=== PATIENT | female | born 1945 | race American Indian/Alaskan Native ===

== ENCOUNTER 2022-01-27 10:56 | Emergency (ER) | payer BC, MEDICARE ==
[2022-01-27 11:34] VITALS: BP 138/86
[2022-01-27] MEDS ORDERED: SODIUM CHLORIDE 0.9% 500 ML 500 ML IV ONE (11:43)
--- NOTE | 2022-01-27 12:40 | XRay Report ---
CHEST 1 VIEW 01/27/2022 11:31 AM INDICATION / CLINICAL INFORMATION: Medical Clearance Psych. COMPARISON: 10/15/2021 FINDINGS: SUPPORT DEVICES: None. HEART / MEDIASTINUM: No significant abnormality. LUNGS / PLEURA: Airspace opacities previously noted in the left lung base have improved in the interv al but are not entirely resolved.. There are low lung volumes bilaterally. No pneumothorax. There is a small calcified granuloma in the right midlung. The right lung is otherwise clear. ADDITIONAL FINDINGS: No significant additional findings. IMPRESSION: 1. There has been interval improvement in airspace opacity since the prior study from October. There is some mild persistent parenchymal opacity in the left lung base. The right lung appears clear. Signer Name: Peter Ramos MD Signed: 01/27/2022 12:36 PM Workstation Name: [id number]
[2022-01-27 12:50] LABS: Basophils # (Auto) 0.1 K/mm3 (0.0-0.1); Basophils % (Auto) 0.7 % (0.0-1.8); Eosinophils # (Auto) 0.2 K/mm3 (0.0-0.4); Eosinophils % (Auto) 2.2 % (0.0-4.3); Hematocrit 38.3 % (30.3-42.9); Hemoglobin 12.3 gm/dl (10.1-14.3); Lymphocytes # (Auto) 3.8 K/mm3 (1.2-5.4); Lymphocytes % (Auto) 40.5 % (13.4-35.0); Mean Corpuscular HGB Conc 32 % (30-34); Mean Corpuscular Volume 88 fl (79-97); Monocytes # (Auto) 0.9 K/mm3 (0.0-0.8); Monocytes % (Auto) 9.4 % (0.0-7.3); Platelet Count 354 K/mm3 (140-440); Red Blood Count 4.38 M/mm3 (3.65-5.03); Red Cell Distribution Width 16.1 % (13.2-15.2)
[2022-01-27 13:02] LABS: Alanine Aminotransferase 8 units/L (7-56); Albumin 3.2 g/dL (3.9-5); Blood Urea Nitrogen 6 mg/dL (7-17); Calcium 10.2 mg/dL (8.4-10.2); Hemolysis Index 33
[2022-01-27 13:03] LABS: BUN/Creatinine Ratio 15
[2022-01-27] MEDS ORDERED: POTASSIUM CHLORIDE ER 20 MEQ TAB PO ONE (13:08)
--- NOTE | 2022-01-27 13:32 | Emergency Department Report ---
ED Medical Clearance HPI - General Chief complaint: Medical Clearance Stated complaint: CHEST PAIN Time Seen by Provider: 01/27/22 11:40 Source: EMS Mode of arrival: Stretcher Limitations: No Limitations - History of Present Illness Initial comments: Pt brought in by EMS with c/o chest pain, pt states that she was seen and being abx for UTI, pt states that she has felt worse since treatment. Pt reports changes in taste and smell. -: Gradual, days(s) Reason for Medical Clearance: medical condition Place: home Alledged Intoxication: No Compliant with Home Medications: No Traumatic Symptoms: denies traumatic injury Associated Symptoms: chest pain, weakness. denies: shortness of breath, palpitations, diaphoresis, denies other symptoms, cough, fever/chills, headaches Treatments Prior to Arrival: none Home medications: Home Medications Medication Instructions Recorded Confirmed Last Taken Amlodipine Besylate [Norvasc] 10 mg PO DAILY 10/15/21 10/15/21 10/15/21 AtorvaSTATin [Lipitor] 20 mg PO QHS 10/15/21 10/15/21 10/15/21 Etanercept [Enbrel] 50 mg SQ QWEEK 10/15/21 10/16/21 10/11/21 Folic Acid 1 mg PO DAILY 10/15/21 10/15/21 10/15/21 Insulin Glargine [Lantus VIAL] 8 unit SUB-Q QHS 10/15/21 10/16/21 10/14/21 Levothyroxine [Synthroid] 75 mcg PO QAM 10/15/21 10/15/21 10/15/21 Lisinopril [Zestril] 20 mg PO DAILY 10/15/21 10/15/21 10/15/21 Metformin HCl [Metformin HCl ER] 500 mg PO DAILY 10/15/21 10/16/21 10/15/21 Metoprolol Xl [Metoprolol 100 mg PO QDAY 10/15/21 10/15/21 10/15/21 SUCCINATE ER TAB] metHOTREXate sodium [Methotrexate] 8 tab PO 1XW 10/15/21 10/16/21 10/14/21 Previous Rx's Medication Instructions Recorded Last Taken Type Apixaban [Eliquis] 5 mg PO Q12HR tablet 10/22/21 Unknown Rx Apixaban [Eliquis] 10 mg PO Q12HR tablet 10/22/21 Unknown Rx Insulin Regular, Human [HumuLIN R] 0 units SUB-Q AC units 10/22/21 Unknown Rx Allergies/Adverse reactions: Allergies Allergy/AdvReac Type Severity Reaction Status Date / Time No Known Allergies Allergy Verified 01/27/22 11:34 ED Review of Systems ROS: Stated complaint: CHEST PAIN Other details as noted in HPI Constitutional: denies: chills, fever Eyes: denies: eye pain, eye discharge, vision change ENT: denies: ear pain, throat pain Respiratory: denies: cough, shortness of breath, wheezing Cardiovascular: denies: chest pain, palpitations Endocrine: no symptoms reported Gastrointestinal: denies: abdominal pain, nausea, diarrhea Genitourinary: denies: urgency, dysuria, discharge Musculoskeletal: denies: back pain, joint swelling, arthralgia Skin: denies: rash, lesions Neurological: denies: headache, weakness, paresthesias Psychiatric: denies: anxiety, depression Hematological/Lymphatic: denies: easy bleeding, easy bruising ED Past Medical Hx - Past Medical History Hx Hypertension: Yes Hx Diabetes: Yes - Social History Smoking Status: Never Smoker Substance Use Type: None - Medications Home Medications: Home Medications Medication Instructions Recorded Confirmed Last Taken Type Amlodipine Besylate [Norvasc] 10 mg PO DAILY 10/15/21 10/15/21 10/15/21 History AtorvaSTATin [Lipitor] 20 mg PO QHS 10/15/21 10/15/21 10/15/21 History Etanercept [Enbrel] 50 mg SQ QWEEK 10/15/21 10/16/21 10/11/21 History Folic Acid 1 mg PO DAILY 10/15/21 10/15/21 10/15/21 History Insulin Glargine [Lantus VIAL] 8 unit SUB-Q QHS 10/15/21 10/16/21 10/14/21 History Levothyroxine [Synthroid] 75 mcg PO QAM 10/15/21 10/15/21 10/15/21 History Lisinopril [Zestril] 20 mg PO DAILY 10/15/21 10/15/21 10/15/21 History Metformin HCl [Metformin HCl ER] 500 mg PO DAILY 10/15/21 10/16/21 10/15/21 History Metoprolol Xl [Metoprolol 100 mg PO QDAY 10/15/21 10/15/21 10/15/21 History SUCCINATE ER TAB] metHOTREXate sodium [Methotrexate] 8 tab PO 1XW 10/15/21 10/16/21 10/14/21 History Apixaban [Eliquis] 5 mg PO Q12HR tablet 10/22/21 Unknown Rx Apixaban [Eliquis] 10 mg PO Q12HR tablet 10/22/21 Unknown Rx Insulin Regular, Human [HumuLIN R] 0 units SUB-Q AC units 10/22/21 Unknown Rx ED Physical Exam - General Limitations: No Limitations General appearance: alert, in no apparent distress - Head Head exam: Present: atraumatic, normocephalic - Eye Eye exam: Present: normal appearance - ENT ENT exam: Present: mucous membranes moist - Neck Neck exam: Present: normal inspection - Respiratory Respiratory exam: Present: normal lung sounds bilaterally. Absent: respiratory distress - Cardiovascular Cardiovascular Exam: Present: regular rate, normal rhythm. Absent: systolic murmur, diastolic murmur, rubs, gallop - GI/Abdominal GI/Abdominal exam: Present: soft, normal bowel sounds - Extremities Exam Extremities exam: Present: normal inspection - Back Exam Back exam: Present: normal inspection - Neurological Exam Neurological exam: Present: alert, oriented X3 - Psychiatric Psychiatric exam: Present: normal affect, normal mood - Skin Skin exam: Present: warm, dry, intact, normal color. Absent: rash ED Course Vital Signs 01/27/22 01/27/22 11:33 11:45 Temperature 96.1 F L Pulse Rate 84 Respiratory 16 Rate Blood Pressure 138/86 [Right] O2 Sat by Pulse 100 100 Oximetry ED Medical Decision Making - Lab Data Result diagrams: 01/27/22 12:20 01/27/22 12:20 - EKG Data -: EKG Interpreted by Pr EKG shows normal: sinus rhythm - EKG Data Interpretation: nonspecific ST-T wave grant, LVH - Radiology Data Radiology results: report reviewed, image reviewed - Medical Decision Making work up showed hypokalemia, corrcted , x ray shwoed imrpoved pneumonia , vss no distress feels better ED Disposition Clinical Impression: Weakness, Pneumonia, Hypokalemia Disposition: 01 HOME / SELF CARE / HOMELESS Is pt being admited?: No Does the pt Need Aspirin: No Condition: Stable Instructions: Bacterial Pneumonia (ED), Hypokalemia, Weakness
--- NOTE | 2022-01-29 14:16 | Electrocardiograph Report ---
[facility] Test Date: 2022-01-27 Test Time: 11:29:27 Pat Name: MOMO BENAVIDEZ Department: Room: Gender: F Stull Hewer: YESSY : 1945 Requested By: ANT ROMERO Order Number: [id number] Reading MD: Emily Yepez Measurements Intervals [place] Rate: 76 P: 10 [place]: 175 QRS: -32 QRSD: 107 T: -11 QT: 436 QTc: 490 Interpretive Statements Sinus rhythm Left ventricular hypertrophy Left axis deviation Compared to ECG 10/15/2021 10:56:10 No significant change Electronically Signed On 01-29-2022 14:15:40 EDT by Emily Yepez
== END 2022-01-27 15:11 | disposition home or self-care (01) ==
LOC: ED 10:56
DX: J18.9 Pneumonia, unspecified organism (principal); R53.1 Weakness; E87.6 Hypokalemia; I10 Essential (primary) hypertension; E11.8 Type 2 diabetes mellitus with unspecified complications
CPT/HCPCS: 36415; 71045; 80053; 85025; 93005; 96360; 99284; J7040

== ENCOUNTER 2022-07-24 23:37 | Inpatient (IN) | payer MEDICARE ==
--- NOTE | 2022-07-25 09:17 | XRay Report ---
CHEST 1 VIEW 07/25/2022 9:03 AM INDICATION / CLINICAL INFORMATION: sob. COMPARISON: 01/27/2022 FINDINGS: SUPPORT DEVICES: None. HEART / MEDIASTINUM: No significant abnormality. LUNGS / PLEURA: No significant pulmonary or pleural abnormality. No pneumothorax. ADDITIONAL FINDINGS: No significant additional findings. IMPRESSION: 1. No acute findings. Signer Name: Tk Morse MD Signed: 07/25/2022 9:13 AM Workstation Name: [id number]
--- NOTE | 2022-07-25 09:59 | Cat Scan Report ---
CT head/brain wo con INDICATION / CLINICAL INFORMATION: 77 years Female; dotson. TECHNIQUE: Routine CT head without contrast. All CT scans at this location are performed using CT dos e reduction for ALARA by means of automated exposure control. COMPARISON: None. FINDINGS: BRAIN / INTRACRANIAL CONTENTS: Small lacunar-type infarct suggested near the head of the caudate on t he right. Otherwise, no acute hemorrhage, mass effect, midline shift, hydrocephalus, or acute, large territori al infarct. Mild, diffuse cerebral and cerebellar atrophy. There are moderate areas of decreased attenuation in the white matter of the cerebral hemispheres, as well as the gangliocapsular regions. These are nonspecific findings and may be related to microangio abigail (hypertension, diabetes, atherosclerosis), given the patient's age. It might be difficult to ev aluate for small areas of ischemia without diffusion imaging by MRI. CRANIOCERVICAL JUNCTION: No significant abnormality. ORBITS: No significant abnormality of visualized orbits. SINUSES / MASTOIDS: Mild to moderate mucosal thickening in the ethmoids. ADDITIONAL FINDINGS: Atherosclerotic disease is seen in the anterior and posterior circulation. IMPRESSION: 1. No focal mass, hemorrhage, hydrocephalus, or acute, large territorial infarct. Follow-up with diff usion imaging by MRI, as clinically warranted. Signer Name: Levi Greenfield MD, III Signed: 07/25/2022 9:55 AM Workstation Name: [id number]
[2022-07-25 10:06] LABS: Basophils # (Auto) 0.1 K/mm3 (0.0-0.1); Basophils % (Auto) 1.2 % (0.0-1.8); Eosinophils # (Auto) 0.1 K/mm3 (0.0-0.4); Hematocrit 36.8 % (30.3-42.9); Hemoglobin 11.7 gm/dl (10.1-14.3); Lymphocytes # (Auto) 4.4 K/mm3 (1.2-5.4); Lymphocytes % (Auto) 40.1 % (13.4-35.0); Mean Corpuscular HGB Conc 32 % (30-34); Mean Corpuscular Volume 88 fl (79-97); Monocytes # (Auto) 1.1 K/mm3 (0.0-0.8); Monocytes % (Auto) 9.7 % (0.0-7.3); Platelet Count 412 K/mm3 (140-440); Red Blood Count 4.18 M/mm3 (3.65-5.03); Red Cell Distribution Width 14.5 % (13.2-15.2)
[2022-07-25 10:17] LABS: Alanine Aminotransferase 16 units/L (7-56); Albumin 4.3 g/dL (3.9-5); Blood Urea Nitrogen 23 mg/dL (7-17); Calcium 11.4 mg/dL (8.4-10.2); Hemolysis Index 1
--- NOTE | 2022-07-25 10:19 | Emergency Department Report ---
ED Altered Mental Status HPI - General Chief Complaint: Altered Mental Status Stated Complaint: GENERALIZED WEAKNESS Time Seen by Provider: 07/25/22 07:04 Source: family, EMS Mode of arrival: Stretcher Limitations: No Limitations - History of Present Illness Initial Comments: 77-year-old white female who became confused at home 2 days ago family called and said patient was seen and placed on antibiotics by an outside hospital confusion has not resolved denies having any trauma denies having any fever or chills. Patient has no complaints and unclear why she is here. She has no complaint of pain. MD Complaint: altered mental status, confusion -: Sudden, days(s) (2) Severity: moderate Consistency of Symptoms: waxing and waning, getting worse Associated Symptoms: denies other symptoms - Related Data Home Medications Medication Instructions Recorded Confirmed Last Taken Amlodipine Besylate [Norvasc] 10 mg PO DAILY 10/15/21 10/15/21 10/15/21 AtorvaSTATin [Lipitor] 20 mg PO QHS 10/15/21 10/15/21 10/15/21 Etanercept [Enbrel] 50 mg SQ QWEEK 10/15/21 10/16/21 10/11/21 Folic Acid 1 mg PO DAILY 10/15/21 10/15/21 10/15/21 Insulin Glargine [Lantus VIAL] 8 unit SUB-Q QHS 10/15/21 10/16/21 10/14/21 Levothyroxine [Synthroid] 75 mcg PO QAM 10/15/21 10/15/21 10/15/21 Lisinopril [Zestril] 20 mg PO DAILY 10/15/21 10/15/21 10/15/21 Metformin HCl [Metformin HCl ER] 500 mg PO DAILY 10/15/21 10/16/21 10/15/21 Metoprolol Xl [Metoprolol 100 mg PO QDAY 10/15/21 10/15/21 10/15/21 SUCCINATE ER TAB] metHOTREXate sodium [Methotrexate] 8 tab PO 1XW 10/15/21 10/16/21 10/14/21 Previous Rx's Medication Instructions Recorded Last Taken Type Apixaban [Eliquis] 5 mg PO Q12HR tablet 10/22/21 Unknown Rx Apixaban [Eliquis] 10 mg PO Q12HR tablet 10/22/21 Unknown Rx Insulin Regular, Human [HumuLIN R] 0 units SUB-Q AC units 10/22/21 Unknown Rx Allergies Allergy/AdvReac Type Severity Reaction Status Date / Time No Known Allergies Allergy Verified 01/27/22 11:34 ED Review of Systems ROS: Stated complaint: GENERALIZED WEAKNESS Other details as noted in HPI Constitutional: see HPI. denies: chills, fever Eyes: denies: eye pain, eye discharge, vision change ENT: denies: ear pain, throat pain Respiratory: denies: cough, shortness of breath, wheezing Cardiovascular: denies: chest pain, palpitations Endocrine: no symptoms reported Gastrointestinal: denies: abdominal pain, nausea, diarrhea Musculoskeletal: denies: back pain, joint swelling, arthralgia Skin: rash Neurological: as per HPI. denies: headache, weakness, paresthesias Psychiatric: denies: anxiety, depression Hematological/Lymphatic: denies: easy bleeding, easy bruising ED Past Medical Hx - Past Medical History Previous Medical History?: Yes Hx Hypertension: Yes Hx Diabetes: Yes Additional medical history: RA, HYPOTHYROID, FREQUENT UTI, SHINGLES - Social History Smoking Status: Never Smoker Substance Use Type: None - Medications Home Medications: Home Medications Medication Instructions Recorded Confirmed Last Taken Type Amlodipine Besylate [Norvasc] 10 mg PO DAILY 10/15/21 10/15/21 10/15/21 History AtorvaSTATin [Lipitor] 20 mg PO QHS 10/15/21 10/15/21 10/15/21 History Etanercept [Enbrel] 50 mg SQ QWEEK 10/15/21 10/16/21 10/11/21 History Folic Acid 1 mg PO DAILY 10/15/21 10/15/21 10/15/21 History Insulin Glargine [Lantus VIAL] 8 unit SUB-Q QHS 10/15/21 10/16/21 10/14/21 History Levothyroxine [Synthroid] 75 mcg PO QAM 10/15/21 10/15/21 10/15/21 History Lisinopril [Zestril] 20 mg PO DAILY 10/15/21 10/15/21 10/15/21 History Metformin HCl [Metformin HCl ER] 500 mg PO DAILY 10/15/21 10/16/21 10/15/21 History Metoprolol Xl [Metoprolol 100 mg PO QDAY 1210/15/21 10/15/21 History SUCCINATE ER TAB] metHOTREXate sodium [Methotrexate] 8 tab PO 1XW 10/15/21 10/16/21 10/14/21 History Apixaban [Eliquis] 5 mg PO Q12HR tablet 10/22/21 Unknown Rx Apixaban [Eliquis] 10 mg PO Q12HR tablet 10/22/21 Unknown Rx Insulin Regular, Human [HumuLIN R] 0 units SUB-Q AC units 10/22/21 Unknown Rx ED Physical Exam - General Limitations: No Limitations General appearance: alert, in no apparent distress - Head Head exam: Present: atraumatic, normocephalic - Eye Eye exam: Present: normal appearance, PERRL Pupils: Present: normal accommodation - ENT ENT exam: Present: normal exam, normal orophraynx, mucous membranes moist - Neck Neck exam: Present: normal inspection. Absent: tenderness - Respiratory Respiratory exam: Present: normal lung sounds bilaterally, other (Healing rash posterior left thorax) - Cardiovascular Cardiovascular Exam: Present: regular rate, normal rhythm, normal heart sounds - GI/Abdominal GI/Abdominal exam: Present: soft, normal bowel sounds - Back Exam Back exam: Present: normal inspection, rash noted - Neurological Exam Neurological exam: Present: alert, altered (Disoriented to place and time), CN II-XII intact ED Course Vital Signs 07/25/22 07/25/22 07/25/22 01:10 01:15 16:19 Temperature 98.9 F Pulse Rate 76 91 H Respiratory 18 18 Rate Blood Pressure 114/68 Blood Pressure 121/71 [Left] O2 Sat by Pulse 98 98 100 Oximetry - Lab Data Result diagrams: 07/26/22 05:10 07/26/22 04:00 Lab Results 07/25/22 07/25/22 Range/Units 09:11 09:11 WBC 11.1 H (4.5-11.0) K/mm3 RBC 4.18 (3.65-5.03) M/mm3 Hgb 11.7 (10.1-14.3) gm/dl Hct 36.8 (30.3-42.9) % MCV 88 (79-97) fl MCH 28 (28-32) pg MCHC 32 (30-34) % RDW 14.5 (13.2-15.2) % Plt Count 412 (140-440) K/mm3 Lymph % (Auto) 40.1 H (13.4-35.0) % Dent % (Auto) 9.7 H (0.0-7.3) % Eos % (Auto) 1.0 (0.0-4.3) % Baso % (Auto) 1.2 (0.0-1.8) % Lymph # (Auto) 4.4 (1.2-5.4) K/mm3 Dent # (Auto) 1.1 H (0.0-0.8) K/mm3 Eos # (Auto) 0.1 (0.0-0.4) K/mm3 Baso # (Auto) 0.1 (0.0-0.1) K/mm3 Seg Neutrophils % 48.0 (40.0-70.0) % Seg Neutrophils # 5.3 (1.8-7.7) K/mm3 Sodium 137 (137-145) mmol/L Potassium 4.7 (3.6-5.0) mmol/L Chloride 102.3 (98-107) mmol/L Carbon Dioxide 22 (22-30) mmol/L Anion Gap 20 mmol/L BUN 23 H (7-17) mg/dL Creatinine 0.6 (0.6-1.2) mg/dL Estimated GFR > 60 ml/min BUN/Creatinine Ratio 38 % Glucose 137 H (65-100) mg/dL Calcium 11.4 H (8.4-10.2) mg/dL Total Bilirubin 0.50 (0.1-1.2) mg/dL AST 17 (5-40) units/L ALT 16 (7-56) units/L Alkaline Phosphatase 94 (35-129) units/L Troponin T 0.037 H (0.00-0.029) ng/mL Total Protein 8.0 (6.3-8.2) g/dL Albumin 4.3 (3.9-5) g/dL Albumin/Globulin Ratio 1.2 % Triglycerides 108 (2-149) mg/dL Cholesterol 100 (50-199) mg/dL LDL Cholesterol Direct 44 L (50-130) mg/dL HDL Cholesterol 37 L (40-59) mg/dL Cholesterol/HDL Ratio 2.70 % Critical care attestation.: If time is entered above; I have spent that time in minutes in the direct care of this critically ill patient, excluding procedure time. ED Disposition Clinical Impression: Altered mental status Disposition: 09 ADMITTED INPATIENT Is pt being admited?: Yes Does the pt Need Aspirin: No Condition: Stable
[2022-07-25 10:29] LABS: HDL Cholesterol 37 mg/dL (40-59); LDL Cholesterol,Direct 44 mg/dL (50-130)
[2022-07-25 10:48] LABS: BUN/Creatinine Ratio 38
--- NOTE | 2022-07-25 19:33 | History and Physical Report ---
History of Present Illness Date of examination: 07/25/22 Date of admission: 07/25/2022 Chief complaint: Altered sensorium for 1 day History of present illness: 77-year-old female with history of hypertension, rheumatoid arthritis, hypothyroidism and dyslipidemia brought in by for confusion for 2 days. Patient is apparently on antibiotics for presumed urinary tract infection recently. Details are not available. Patient acting confused for the last 48 hours. Intermittently. As periods of lucid state. No fever or chills. - Past Medical History --Previous Medical History?: Yes --Hypertension: Yes --Diabetes: Yes --Additional medical history: RA, HYPOTHYROID, FREQUENT UTI, SHINGLES - Social History --Smoking Status: Never Smoker --Substance Use Type: None -Family history --Htn - Medications Home Medications: Home Medications Medication Instructions Recorded Confirmed Last Taken Type Amlodipine Besylate [Norvasc] 10 mg PO DAILY 10/15/21 10/15/21 10/15/21 History AtorvaSTATin [Lipitor] 20 mg PO QHS 10/15/21 10/15/21 10/15/21 History Etanercept [Enbrel] 50 mg SQ QWEEK 10/15/21 10/16/21 10/11/21 History Folic Acid 1 mg PO DAILY 10/15/21 10/15/21 10/15/21 History Insulin Glargine [Lantus VIAL] 8 unit SUB-Q QHS 10/15/21 10/16/21 10/14/21 History Levothyroxine [Synthroid] 75 mcg PO QAM 10/15/21 10/15/21 10/15/21 History Lisinopril [Zestril] 20 mg PO DAILY 10/15/21 10/15/21 10/15/21 History Metformin HCl [Metformin HCl ER] 500 mg PO DAILY 10/15/21 10/16/21 10/15/21 History Metoprolol Xl [Metoprolol 100 mg PO QDAY 10/15/21 10/15/21 10/15/21 History SUCCINATE ER TAB] metHOTREXate sodium [Methotrexate] 8 tab PO 1XW 10/15/21 10/16/21 10/14/21 History Apixaban [Eliquis] 5 mg PO Q12HR tablet 10/22/21 Unknown Rx Apixaban [Eliquis] 10 mg PO Q12HR tablet 10/22/21 Unknown Rx Insulin Regular, Human [HumuLIN R] 0 units SUB-Q AC units 10/22/21 Unknown Rx Review of Systems ROS: Stated complaint: GENERALIZED WEAKNESS Other details as noted in HPI Constitutional: see HPI. denies: chills, fever Eyes: denies: eye pain, eye discharge, vision change ENT: denies: ear pain, throat pain Respiratory: denies: cough, shortness of breath, wheezing Cardiovascular: denies: chest pain, palpitations Endocrine: no symptoms reported Gastrointestinal: denies: abdominal pain, nausea, diarrhea Musculoskeletal: denies: back pain, joint swelling, arthralgia Skin: rash Neurological: as per HPI. denies: headache, weakness, paresthesias Psychiatric: denies: anxiety, depression Hematological/Lymphatic: denies: easy bleeding, easy bruising Medications and Allergies Allergies Allergy/AdvReac Type Severity Reaction Status Date / Time No Known Allergies Allergy Verified 01/27/22 11:34 Home Medications Medication Instructions Recorded Confirmed Last Taken Type Amlodipine Besylate [Norvasc] 10 mg PO DAILY 10/15/21 10/15/21 10/15/21 History AtorvaSTATin [Lipitor] 20 mg PO QHS 10/15/21 10/15/21 10/15/21 History Etanercept [Enbrel] 50 mg SQ QWEEK 10/15/21 10/16/21 10/11/21 History Folic Acid 1 mg PO DAILY 10/15/21 10/15/21 10/15/21 History Insulin Glargine [Lantus VIAL] 8 unit SUB-Q QHS 10/15/21 10/16/21 10/14/21 History Levothyroxine [Synthroid] 75 mcg PO QAM 10/15/21 10/15/21 10/15/21 History Lisinopril [Zestril] 20 mg PO DAILY 10/15/21 10/15/21 10/15/21 History Metformin HCl [Metformin HCl ER] 500 mg PO DAILY 10/15/21 10/16/21 10/15/21 History Metoprolol Xl [Metoprolol 100 mg PO QDAY 10/15/21 10/15/21 10/15/21 History SUCCINATE ER TAB] metHOTREXate sodium [Methotrexate] 8 tab PO 1XW 12/14/21 12/15/21 12/13/21 History Apixaban [Eliquis] 5 mg PO Q12HR tablet 10/22/21 Unknown Rx Apixaban [Eliquis] 10 mg PO Q12HR tablet 10/22/21 Unknown Rx Insulin Regular, Human [HumuLIN R] 0 units SUB-Q AC units 10/22/21 Unknown Rx Exam - Constitutional Vitals: Temp Pulse Resp BP Pulse Ox 98.9 F 91 H 18 121/71 100 07/25/22 01:10 07/25/22 16:19 07/25/22 16:19 07/25/22 16:19 07/25/22 16:19 General appearance: Present: no acute distress, well-nourished - EENT Eyes: Present: PERRL ENT: hearing intact, clear oral mucosa - Neck Neck: Present: supple, normal ROM - Respiratory Respiratory effort: normal Respiratory: bilateral: CTA - Cardiovascular Heart rate: 78 Rhythm: regular Heart Sounds: Present: S1 & S2. Absent: rub, click - Extremities Extremities: pulses symmetrical, No edema Peripheral Pulses: within normal limits - Abdominal General gastrointestinal: Present: soft, non-tender, non-distended, normal bowel sounds Female genitourinary: Present: normal - Integumentary Integumentary: Present: clear, warm, dry - Musculoskeletal Musculoskeletal: gait normal, strength equal bilaterally - Psychiatric Psychiatric: appropriate mood/affect, intact judgment & insight, other (Continues intermittently.) - Neurologic Neurologic: CNII-XII intact, moves all extremities HEART Score - HEART Score Troponin: Troponin T 0.037 ng/mL (0.00-0.029) H 07/25/22 09:11 Results - Labs CBC & Chem 7: 07/26/22 05:10 07/26/22 04:00 Labs: Laboratory Last Values WBC 11.1 K/mm3 (4.5-11.0) H 07/25/22 09:11 RBC 4.18 M/mm3 (3.65-5.03) 07/25/22 09:11 Hgb 11.7 gm/dl (10.1-14.3) 07/25/22 09:11 Hct 36.8 % (30.3-42.9) 07/25/22 09:11 MCV 88 fl (79-97) 07/25/22 09:11 MCH 28 pg (28-32) 07/25/22 09:11 MCHC 32 % (30-34) 07/25/22 09:11 RDW 14.5 % (13.2-15.2) 07/25/22 09:11 Plt Count 412 K/mm3 (140-440) 07/25/22 09:11 Lymph % (Auto) 40.1 % (13.4-35.0) H 07/25/22 09:11 [place] % (Auto) 9.7 % (0.0-7.3) H 07/25/22 09:11 Eos % (Auto) 1.0 % (0.0-4.3) 07/25/22 09:11 Baso % (Auto) 1.2 % (0.0-1.8) 07/25/22 09:11 Lymph # (Auto) 4.4 K/mm3 (1.2-5.4) 07/25/22 09:11 [place] # (Auto) 1.1 K/mm3 (0.0-0.8) H 07/25/22 09:11 Eos # (Auto) 0.1 K/mm3 (0.0-0.4) 07/25/22 09:11 Baso # (Auto) 0.1 K/mm3 (0.0-0.1) 07/25/22 09:11 Seg Neutrophils % 48.0 % (40.0-70.0) 07/25/22 09:11 Seg Neutrophils # 5.3 K/mm3 (1.8-7.7) 07/25/22 09:11 Sodium 137 mmol/L (137-145) 07/25/22 09:11 Potassium 4.7 mmol/L (3.6-5.0) 07/25/22 09:11 Chloride 102.3 mmol/L (98-107) 07/25/22 09:11 Carbon Dioxide 22 mmol/L (22-30) 07/25/22 09:11 Anion Gap 20 mmol/L 07/25/22 09:11 BUN 23 mg/dL (7-17) H 07/25/22 09:11 Creatinine 0.6 mg/dL (0.6-1.2) 07/25/22 09:11 Estimated GFR > 60 ml/min 07/25/22 09:11 BUN/Creatinine Ratio 38 % 07/25/22 09:11 Glucose 137 mg/dL (65-100) H 07/25/22 09:11 Calcium 11.4 mg/dL (8.4-10.2) H 07/25/22 09:11 Total Bilirubin 0.50 mg/dL (0.1-1.2) 07/25/22 09:11 AST 17 units/L (5-40) 07/25/22 09:11 ALT 16 units/L (7-56) 07/25/22 09:11 Alkaline Phosphatase 94 units/L (35-129) 07/25/22 09:11 Troponin T 0.037 ng/mL (0.00-0.029) H 07/25/22 09:11 Total Protein 8.0 g/dL (6.3-8.2) 07/25/22 09:11 Albumin 4.3 g/dL (3.9-5) 07/25/22 09:11 Albumin/Globulin Ratio 1.2 % 07/25/22 09:11 Triglycerides 108 mg/dL (2-149) 07/25/22 09:11 Cholesterol 100 mg/dL (50-199) 07/25/22 09:11 LDL Cholesterol Direct 44 mg/dL (50-130) L 07/25/22 09:11 HDL Cholesterol 37 mg/dL (40-59) L 07/25/22 09:11 Cholesterol/HDL Ratio 2.70 % 07/25/22 09:11 Short CBC 07/25/22 07/26/22 Range/Units 09:11 05:10 WBC 11.1 H 10.8 (4.5-11.0) K/mm3 Hgb 11.7 12.7 (10.1-14.3) gm/dl Hct 36.8 38.9 (30.3-42.9) % Plt Count 412 435 (140-440) K/mm3 BMP 07/25/22 07/26/22 09:11 04:00 Sodium 137 139 Potassium 4.7 4.9 Chloride 102.3 102.1 Carbon Dioxide BUN 23 H 20 H Creatinine 0.6 0.5 L Glucose 137 H 182 H Calcium 11.4 H 11.3 H Cardiac Enzymes 07/25/22 Range/Units 09:11 Troponin T 0.037 H (0.00-0.029) ng/mL Liver Function 07/25/22 07/26/22 Range/Units 09:11 04:00 Total Bilirubin 0.50 0.60 (0.1-1.2) mg/dL AST 17 19 (5-40) units/L ALT 16 17 (7-56) units/L Alkaline Phosphatase 94 89 (35-129) units/L Albumin 4.3 4.4 (3.9-5) g/dL - Imaging and Cardiology Imaging and Cardiology: Chest x-ray No acute findings Head CT No acute findings Assessment and Plan Advance Directives: Yes (Full code) VTE prophylaxis?: Chemical Plan of care discussed with patient/family: Yes - Patient Problems (1) Acute encephalopathy Current Visit: Yes Status: Acute Plan to address problem: Hypercalcemia may be contributing factor Check PTH IV calcitonin (2) Hypercalcemia Current Visit: Yes Status: Acute Plan to address problem: IV fluids and IV calcitonin PTH level requested (3) IDDM (insulin dependent diabetes mellitus) Current Visit: Yes Status: Chronic Plan to address problem: Continue home insulin and coverage Check hemoglobin A1c (4) Hypertension Current Visit: Yes Status: Chronic Qualifiers: Hypertension type: primary hypertension Qualified Code(s): I10 - Essential (primary) hypertension Plan to address problem: Continue antihypertensives and adjust medications as necessary (5) Hyperlipidemia Current Visit: Yes Status: Chronic Qualifiers: Hyperlipidemia type: mixed hyperlipidemia Qualified Code(s): E78.2 - Mixed hyperlipidemia Plan to address problem: Continue statins (6) Rheumatoid arthritis Current Visit: Yes Status: Chronic Qualifiers: Laterality: unspecified laterality Plan to address problem: Continue methotrexate and Enbrel (7) Hypothyroidism Current Visit: Yes Status: Chronic Qualifiers: Hypothyroidism type: acquired Qualified Code(s): E03.9 - Hypothyroidism, unspecified Plan to address problem: Continue Synthroid and check TSH (8) DVT prophylaxis Current Visit: Yes Status: Acute Plan to address problem: On heparin and GI prophylaxis (9) Advance care planning Current Visit: Yes Status: Acute Plan to address problem: Disease education conducted in care plan discussed, diagnosis discussed and prognosis discussed. Patient is full code. Family and patient acknowledges understanding of care plan +30 minutes.
[2022-07-25] MEDS ORDERED: ONDANSETRON 4 MG/2 ML INJ IV PRN (19:35)
[2022-07-25] MEDS ORDERED: oxyCODONE /ACETAMINOPHEN 5-325MG TAB PO PRN (19:35)
[2022-07-25] MEDS ORDERED: MORPHINE 2 MG/1 ML INJ IV PRN (19:35)
[2022-07-25] MEDS ORDERED: METOCLOPRAMIDE 10 MG/2 ML INJ IV PRN (19:35)
[2022-07-25] MEDS ORDERED: NON-FORMULARY EACH (Folic Acid [Folic Acid] 1 MG Tablet) PO SCH (19:45)
[2022-07-25] MEDS ORDERED: ACETAMINOPHEN 325 MG TAB PO PRN (20:00)
[2022-07-25] MEDS: LISINOPRIL 20 MG TAB PO SCH (21:33)
[2022-07-25] MEDS: METOPROLOL SUCCINATE XL 100 MG TAB PO SCH (21:33)
[2022-07-25] MEDS: amLODIPine 5 MG TAB PO SCH (21:33)
[2022-07-25] MEDS ORDERED: NON-FORMULARY EACH (Apixaban 5 MG Tablet) PO SCH (22:00)
[2022-07-25] MEDS: HEPARIN 5,000 UNIT/1 ML VIAL SUB-Q SCH (23:24)
[2022-07-25] MEDS: FAMOTIDINE 20 MG TAB PO SCH (23:24)
[2022-07-25] MEDS: INSULIN GLARGINE 100 UNITS/ML SUB-Q SCH (23:50)
[2022-07-26] MEDS: D5W/0.9% NACL 1,000 ML IV SCH (00:45)
[2022-07-26] MEDS: INSULIN GLARGINE 100 UNITS/ML SUB-Q SCH ×2 (00:51→23:23)
[2022-07-26 05:23] LABS: Basophils # (Auto) 0.1 K/mm3 (0.0-0.1); Basophils % (Auto) 0.7 % (0.0-1.8); Eosinophils # (Auto) 0.1 K/mm3 (0.0-0.4); Eosinophils % (Auto) 0.7 % (0.0-4.3); Hematocrit 38.9 % (30.3-42.9); Hemoglobin 12.7 gm/dl (10.1-14.3); Lymphocytes # (Auto) 2.6 K/mm3 (1.2-5.4); Lymphocytes % (Auto) 23.8 % (13.4-35.0); Mean Corpuscular HGB Conc 33 % (30-34); Mean Corpuscular Volume 88 fl (79-97); Monocytes # (Auto) 0.8 K/mm3 (0.0-0.8); Monocytes % (Auto) 7.3 % (0.0-7.3); Platelet Count 435 K/mm3 (140-440); Red Blood Count 4.43 M/mm3 (3.65-5.03); Red Cell Distribution Width 14.7 % (13.2-15.2)
[2022-07-26 05:45] LABS: Alanine Aminotransferase 17 units/L (7-56); Albumin 4.4 g/dL (3.9-5); Blood Urea Nitrogen 20 mg/dL (7-17); Calcium 11.3 mg/dL (8.4-10.2); Hemolysis Index 34
[2022-07-26 05:48] LABS: BUN/Creatinine Ratio 40
[2022-07-26] MEDS: METOPROLOL SUCCINATE XL 100 MG TAB PO SCH (09:14)
[2022-07-26] MEDS: LISINOPRIL 20 MG TAB PO SCH (09:14)
[2022-07-26] MEDS: HEPARIN 5,000 UNIT/1 ML VIAL SUB-Q SCH ×2 (09:14→21:48)
[2022-07-26] MEDS: amLODIPine 5 MG TAB PO SCH (09:14)
[2022-07-26] MEDS: LEVOTHYROXINE 75 MCG TAB PO SCH (09:15)
[2022-07-26] MEDS: FOLIC ACID 1 MG TAB PO SCH (09:15)
[2022-07-26] MEDS: FAMOTIDINE 20 MG TAB PO SCH ×2 (09:15→21:48)
[2022-07-26] MEDS ORDERED: metFORMIN XR 500MG TAB PO SCH (10:00)
--- NOTE | 2022-07-26 11:16 | Progress Note ---
Assessment and Plan Assessment and plan: Advance Directives: Yes (Full code) VTE prophylaxis?: Chemical Plan of care discussed with patient/family: Yes - Patient Problems -- Acute toxic metabolic encephalopathy Hypercalcemia, hypertension, hypothyroidism , advanced age may be the contributing factors Treat underlying cause,Check PTH, IV calcitonin Optimal control of blood sugars Resume home medications Closely monitor -- Hypercalcemia IV fluids and IV calcitonin PTH level requested -- IDDM (insulin dependent diabetes mellitus) Accu-Cheks .sliding scale coverage .ADA diet Long-acting insulin as needed , check hemoglobin A1c Diabetic education, diabetic nutrition education prior to discharge Home health nurse for disease monitoring Check hemoglobin A1c 7.7 and 10/2021 --Hypertension/well-controlled Continue current antihypertensives and As needed hydralazine , closely monitor --Hyperlipidemia Continue statins, low-cholesterol -- Rheumatoid arthritis Continue methotrexate and Enbrel Supportive care --Hypothyroidism Continue Synthroid and check TSH --DVT prophylaxis Subcu heparin --Full CODE STATUS --Advance care planning-+30 minutes Disease education conducted in care plan discussed, diagnosis discussed and prognosis discussed. Patient is full code. Family and patient acknowledges understanding of care plan +30 minutes. --preventive health care counseling; +30 minutes Elderly frail patient fall precautions, aspiration precautions, raise the head end of the bed Not appropriate age-related health screenings per primary care physician Follow PT, OT evaluation recommendation Check [place] PCR test Possible discharge back to SNF 1 to 2 days if medically stable History Interval history: Seen and examined the patient at the bedside Patient's chart and medications reviewed Patient complains of some headache and dizziness Generalized weakness Also complains of some unsteady gait Vital signs noted Hospitalist Physical - Constitutional Vitals: Temp Pulse Resp BP Pulse Ox 97.8 F 99 H 18 144/90 98 07/26/22 08:45 07/26/22 08:45 07/26/22 08:45 07/26/22 08:45 07/26/22 08:45 General appearance: Present: no acute distress, well-nourished - EENT Eyes: Present: PERRL, EOM intact, scleral icterus - Neck Neck: Present: supple, normal ROM - Respiratory Respiratory effort: normal - Cardiovascular Rhythm: regular Heart Sounds: Present: S1 & S2 - Extremities Extremities: no ischemia, No edema - Abdominal General gastrointestinal: soft, non-tender, non-distended, normal bowel sounds - Integumentary Integumentary: Present: clear, warm - Psychiatric Psychiatric: appropriate mood/affect, cooperative - Neurologic Neurologic: moves all extremities HEART Score - HEART Score Troponin: Troponin T 0.037 ng/mL (0.00-0.029) H 07/25/22 09:11 Results - Labs CBC & Chem 7: 07/26/22 05:10 07/26/22 04:00 Labs: Laboratory Last Values WBC 10.8 K/mm3 (4.5-11.0) 07/26/22 05:10 RBC 4.43 M/mm3 (3.65-5.03) 07/26/22 05:10 Hgb 12.7 gm/dl (10.1-14.3) 07/26/22 05:10 Hct 38.9 % (30.3-42.9) 07/26/22 05:10 MCV 88 fl (79-97) 07/26/22 05:10 MCH 29 pg (28-32) 07/26/22 05:10 MCHC 33 % (30-34) 07/26/22 05:10 RDW 14.7 % (13.2-15.2) 07/26/22 05:10 Plt Count 435 K/mm3 (140-440) 07/26/22 05:10 Lymph % (Auto) 23.8 % (13.4-35.0) 07/26/22 05:10 [place] % (Auto) 7.3 % (0.0-7.3) 07/26/22 05:10 Eos % (Auto) 0.7 % (0.0-4.3) 07/26/22 05:10 Baso % (Auto) 0.7 % (0.0-1.8) 07/26/22 05:10 Lymph # (Auto) 2.6 K/mm3 (1.2-5.4) 07/26/22 05:10 [place] # (Auto) 0.8 K/mm3 (0.0-0.8) 07/26/22 05:10 Eos # (Auto) 0.1 K/mm3 (0.0-0.4) 07/26/22 05:10 Baso # (Auto) 0.1 K/mm3 (0.0-0.1) 07/26/22 05:10 Seg Neutrophils % 67.5 % (40.0-70.0) 07/26/22 05:10 Seg Neutrophils # 7.3 K/mm3 (1.8-7.7) 07/26/22 05:10 Sodium 139 mmol/L (137-145) 07/26/22 04:00 Potassium 4.9 mmol/L (3.6-5.0) 07/26/22 04:00 Chloride 102.1 mmol/L (98-107) 07/26/22 04:00 Carbon Dioxide 23 mmol/L (22-30) 07/26/22 04:00 Anion Gap 19 mmol/L 07/26/22 04:00 BUN 20 mg/dL (7-17) H 07/26/22 04:00 Creatinine 0.5 mg/dL (0.6-1.2) L 07/26/22 04:00 Estimated GFR > 60 ml/min 07/26/22 04:00 BUN/Creatinine Ratio 40 % 07/26/22 04:00 Glucose 182 mg/dL (65-100) H 07/26/22 04:00 Calcium 11.3 mg/dL (8.4-10.2) H 07/26/22 04:00 Total Bilirubin 0.60 mg/dL (0.1-1.2) 07/26/22 04:00 AST 19 units/L (5-40) 07/26/22 04:00 ALT 17 units/L (7-56) 07/26/22 04:00 Alkaline Phosphatase 89 units/L (35-129) 07/26/22 04:00 Troponin T 0.037 ng/mL (0.00-0.029) H 07/25/22 09:11 Total Protein 8.3 g/dL (6.3-8.2) H 07/26/22 04:00 Albumin 4.4 g/dL (3.9-5) 07/26/22 04:00 Albumin/Globulin Ratio 1.1 % 07/26/22 04:00 Triglycerides 108 mg/dL (2-149) 07/25/22 09:11 Cholesterol 100 mg/dL (50-199) 07/25/22 09:11 LDL Cholesterol Direct 44 mg/dL (50-130) L 07/25/22 09:11 HDL Cholesterol 37 mg/dL (40-59) L 07/25/22 09:11 Cholesterol/HDL Ratio 2.70 % 07/25/22 09:11 [place]/IV: Voiding Method External Female Catheter Active Medications - Current Medications Current Medications: Generic Name Dose Route Start Last Admin Trade Name Freq PRN Reason Stop Dose Admin Acetaminophen 650 mg 07/25/22 20:00 Acetaminophen 325 Mg Tab PO Q4H PRN Pain MILD(1-3)/Fever >100.5/FARFAN Amlodipine Besylate 10 mg 07/25/22 20:00 07/26/22 09:14 Amlodipine 5 Mg Tab PO 10 mg DAILY VINEET Administration Atorvastatin Calcium 20 mg 07/25/22 22:00 07/25/22 23:24 Atorvastatin 20 Mg Tab PO 20 mg QHS VINEET Administration Calcitonin [place] 250 unit 07/26/22 11:00 Calcitonin,[place],Synthetic 400 Unit/2 Ml Inj Mdv 4 unit/kg (250 unit) 07/26/22 22:01 IM Q12HR VINEET Famotidine 20 mg 07/25/22 22:00 07/26/22 09:15 Famotidine 20 Mg Tab PO 20 mg BID VINEET Administration Folic Acid 1 mg 07/26/22 10:00 07/26/22 09:15 Folic Acid 1 Mg Tab PO 1 mg DAILY VINEET Administration Heparin Sodium (Porcine) 5,000 unit 07/25/22 22:00 07/26/22 09:14 Heparin 5,000 Unit/1 Ml Vial SUB-Q 5,000 unit Q12HR VINEET Administration Dextrose/Sodium Chloride 1,000 mls @ 100 mls/hr 07/25/22 20:00 07/26/22 00:45 D5ns IV 100 mls/hr DIRECT VINEET Administration Insulin Glargine 8 units 07/25/22 22:00 07/26/22 00:51 Insulin Glargine 100 Units/Ml SUB-Q 8 units QHS VINEET Administration Levothyroxine Sodium 75 mcg 07/26/22 10:00 07/26/22 09:15 Levothyroxine 75 Mcg Tab PO 75 mcg QAM VINEET Administration Lisinopril 20 mg 07/25/22 21:00 07/26/22 09:14 Lisinopril 20 Mg Tab PO 20 mg DAILY VINEET Administration Metformin HCl 500 mg 07/26/22 10:00 07/26/22 09:21 Metformin Xr 500mg Tab PO 500 mg DAILY VINEET Administration Methotrexate 20 mg 07/28/22 10:00 Methotrexate 2.5 Mg Tab (Dose Weekly Only) PO Mo VINEET Metoclopramide HCl 10 mg 07/25/22 19:35 Metoclopramide 10 Mg/2 Ml Inj IV Q6H PRN Nausea And Vomiting Metoprolol Succinate 100 mg 07/25/22 20:00 07/26/22 09:14 Metoprolol Succinate Xl 100 Mg Tab PO 100 mg QDAY VINEET Administration Miscellaneous Medication 50 mg 08/08/22 10:00 Etanercept [Enbrel] SUB-Q QWEEK [facility] Morphine Sulfate 2 mg 07/25/22 19:35 Morphine 2 Mg/1 Ml Inj IV Q4H PRN Pain, Moderate (4-6) Ondansetron HCl 4 mg 07/25/22 19:35 Ondansetron 4 Mg/2 Ml Inj IV Q3H PRN Nausea And Vomiting Oxycodone/Acetaminophen 1 tab 07/25/22 19:35 Oxycodone /Acetaminophen 5-325mg Tab PO Q6H PRN Pain, Moderate (4-6) Sodium Chloride 10 ml 07/25/22 22:00 07/26/22 09:21 Sodium Chloride 0.9% 10 Ml Flush Syringe IV 10 ml BID VINEET Administration Sodium Chloride 10 ml 07/25/22 19:35 Sodium Chloride 0.9% 10 Ml Flush Syringe IV PRN PRN LINE FLUSH
[2022-07-26] MEDS: CALCITONIN,SALMON,SYNTHETIC 400 UNIT/2 ML INJ MDV IM SCH (21:44)
[2022-07-27] MEDS: D5W/0.9% NACL 1,000 ML IV SCH (07:07)
[2022-07-27] MEDS: CALCITONIN,SALMON,SYNTHETIC 400 UNIT/2 ML INJ MDV IM SCH (08:02)
[2022-07-27] MEDS: metFORMIN XR 500MG TAB PO SCH (10:48)
[2022-07-27] MEDS: amLODIPine 10 MG TAB PO SCH (10:48)
[2022-07-27] MEDS: LEVOTHYROXINE 75 MCG TAB PO SCH (10:48)
[2022-07-27] MEDS: METOPROLOL SUCCINATE XL 100 MG TAB PO SCH (10:48)
[2022-07-27] MEDS: FOLIC ACID 1 MG TAB PO SCH (10:48)
[2022-07-27] MEDS: FAMOTIDINE 20 MG TAB PO SCH ×2 (10:48→21:09)
[2022-07-27] MEDS: LISINOPRIL 20 MG TAB PO SCH (10:48)
[2022-07-27] MEDS: HEPARIN 5,000 UNIT/1 ML VIAL SUB-Q SCH ×2 (10:49→21:09)
--- NOTE | 2022-07-27 11:01 | Progress Note ---
Assessment and Plan Assessment and plan: -Advance Directives: Yes (Full code) VTE prophylaxis?: Chemical Plan of care discussed with patient/family: Yes - Patient Problems -- Acute toxic metabolic encephalopathy Hypercalcemia, hypertension, hypothyroidism , advanced age may be the contributing factors Treat underlying cause,Check PTH, IV calcitonin Optimal control of blood sugars Resume home medications,Closely monitor -- Hypercalcemia IV fluids and IV calcitonin, PTH level requested -- IDDM (insulin dependent diabetes mellitus) Accu-Cheks .sliding scale coverage .ADA diet Long-acting insulin as needed , check hemoglobin A1c Diabetic education, diabetic nutrition education prior to discharge Home health nurse for disease monitoring Check hemoglobin A1c 7.7 and 10/2021 --Hypertension/well-controlled Continue current antihypertensives and As needed hydralazine , closely monitor --Hyperlipidemia Continue statins, low-cholesterol -- Rheumatoid arthritis Continue methotrexate and Enbrel Supportive care --Hypothyroidism Continue Synthroid and check TSH --DVT prophylaxis Subcu heparin --Full CODE STATUS --Advance care planning-+30 minutes Disease education conducted in care plan discussed, diagnosis discussed and prognosis discussed. Patient is full code. Family and patient acknowledges understanding of care plan +30 minutes. --preventive health care counseling; +30 minutes Elderly frail patient fall precautions, aspiration precautions, raise the head end of the bed Not appropriate age-related health screenings per primary care physician 07/27/2022; follow PT, OT evaluation recommendation Check crowley PCR test, case management to assist with discharge planning Possible discharge back to SNF tomorrow if stable History Interval history: I have seen and examined the patient at the bedside Patient's chart and medications reviewed Patient complains of generalized weakness Confused intermittently Severely dehydrated with hypercalcemia Hospitalist Physical - Constitutional Vitals: Temp Pulse Resp BP Pulse Ox 98.2 F 81 18 143/75 96 07/27/22 08:04 07/27/22 08:04 07/27/22 08:04 07/27/22 08:04 07/27/22 08:04 General appearance: Present: no acute distress, well-nourished - EENT Eyes: Present: PERRL, EOM intact - Neck Neck: Present: supple, normal ROM - Respiratory Respiratory effort: normal Respiratory: bilateral: diminished, negative: rales, rhonchi, wheezing - Cardiovascular Rhythm: regular Heart Sounds: Present: S1 & S2 - Extremities Extremities: no ischemia, No edema - Abdominal General gastrointestinal: soft, non-tender, non-distended, normal bowel sounds - Integumentary Integumentary: Present: clear, warm - Psychiatric Psychiatric: appropriate mood/affect, cooperative, other (Confused at times) - Neurologic Neurologic: moves all extremities HEART Score - HEART Score Troponin: Troponin T 0.037 ng/mL (0.00-0.029) H 07/25/22 09:11 Results - Labs CBC & Chem 7: 07/26/22 05:10 07/26/22 04:00 Labs: Laboratory Last Values WBC 10.8 K/mm3 (4.5-11.0) 07/26/22 05:10 RBC 4.43 M/mm3 (3.65-5.03) 07/26/22 05:10 Hgb 12.7 gm/dl (10.1-14.3) 07/26/22 05:10 Hct 38.9 % (30.3-42.9) 07/26/22 05:10 MCV 88 fl (79-97) 07/26/22 05:10 MCH 29 pg (28-32) 07/26/22 05:10 MCHC 33 % (30-34) 07/26/22 05:10 RDW 14.7 % (13.2-15.2) 07/26/22 05:10 Plt Count 435 K/mm3 (140-440) 07/26/22 05:10 Lymph % (Auto) 23.8 % (13.4-35.0) 07/26/22 05:10 [place] % (Auto) 7.3 % (0.0-7.3) 07/26/22 05:10 Eos % (Auto) 0.7 % (0.0-4.3) 07/26/22 05:10 Baso % (Auto) 0.7 % (0.0-1.8) 07/26/22 05:10 Lymph # (Auto) 2.6 K/mm3 (1.2-5.4) 07/26/22 05:10 [place] # (Auto) 0.8 K/mm3 (0.0-0.8) 07/26/22 05:10 Eos # (Auto) 0.1 K/mm3 (0.0-0.4) 07/26/22 05:10 Baso # (Auto) 0.1 K/mm3 (0.0-0.1) 07/26/22 05:10 Seg Neutrophils % 67.5 % (40.0-70.0) 07/26/22 05:10 Seg Neutrophils # 7.3 K/mm3 (1.8-7.7) 07/26/22 05:10 Sodium 139 mmol/L (137-145) 07/26/22 04:00 Potassium 4.9 mmol/L (3.6-5.0) 07/26/22 04:00 Chloride 102.1 mmol/L (98-107) 07/26/22 04:00 Carbon Dioxide 23 mmol/L (22-30) 07/26/22 04:00 Anion Gap 19 mmol/L 07/26/22 04:00 BUN 20 mg/dL (7-17) H 07/26/22 04:00 Creatinine 0.5 mg/dL (0.6-1.2) L 07/26/22 04:00 Estimated GFR > 60 ml/min 07/26/22 04:00 BUN/Creatinine Ratio 40 % 07/26/22 04:00 Glucose 182 mg/dL (65-100) H 07/26/22 04:00 POC Glucose 157 mg/dL (70-105) H 07/26/22 21:38 Calcium 11.3 mg/dL (8.4-10.2) H 07/26/22 04:00 Total Bilirubin 0.60 mg/dL (0.1-1.2) 07/26/22 04:00 AST 19 units/L (5-40) 07/26/22 04:00 ALT 17 units/L (7-56) 07/26/22 04:00 Alkaline Phosphatase 89 units/L (35-129) 07/26/22 04:00 Troponin T 0.037 ng/mL (0.00-0.029) H 07/25/22 09:11 Total Protein 8.3 g/dL (6.3-8.2) H 07/26/22 04:00 Albumin 4.4 g/dL (3.9-5) 07/26/22 04:00 Albumin/Globulin Ratio 1.1 % 07/26/22 04:00 Triglycerides 108 mg/dL (2-149) 07/25/22 09:11 Cholesterol 100 mg/dL (50-199) 07/25/22 09:11 LDL Cholesterol Direct 44 mg/dL (50-130) L 07/25/22 09:11 HDL Cholesterol 37 mg/dL (40-59) L 07/25/22 09:11 Cholesterol/HDL Ratio 2.70 % 07/25/22 09:11 PTH Intact 37.43 pg/mL (15-65) 07/26/22 11:16 [place]/IV: Voiding Method External Female Catheter Active Medications - Current Medications Current Medications: Generic Name Dose Route Start Last Admin Trade Name Freq PRN Reason Stop Dose Admin Acetaminophen 650 mg 07/25/22 20:00 Acetaminophen 325 Mg Tab PO Q4H PRN Pain MILD(1-3)/Fever >100.5/FARFAN Amlodipine Besylate 10 mg 07/27/22 10:00 07/27/22 10:48 Amlodipine 10 Mg Tab PO 10 mg DAILY VINEET Administration Atorvastatin Calcium 20 mg 07/25/22 22:00 07/26/22 21:48 Atorvastatin 20 Mg Tab PO 20 mg QHS VINEET Administration Famotidine 20 mg 07/25/22 22:00 07/27/22 10:48 Famotidine 20 Mg Tab PO 20 mg BID VINEET Administration Folic Acid 1 mg 07/26/22 10:00 07/27/22 10:48 Folic Acid 1 Mg Tab PO 1 mg DAILY VINEET Administration Heparin Sodium (Porcine) 5,000 unit 07/25/22 22:00 07/27/22 10:49 Heparin 5,000 Unit/1 Ml Vial SUB-Q 5,000 unit Q12HR VINEET Administration Dextrose/Sodium Chloride 1,000 mls @ 100 mls/hr 07/25/22 20:00 07/27/22 07:07 D5ns IV 100 mls/hr DIRECT VINEET Administration Sodium Chloride 500 mls @ 999 mls/hr 07/27/22 10:56 Nacl 0.9% 500 Ml IV 07/27/22 11:26 ONCE ONE Insulin Glargine 8 units 07/25/22 22:00 07/26/22 23:23 Insulin Glargine 100 Units/Ml SUB-Q Not Given QHS VINEET Levothyroxine Sodium 75 mcg 07/26/22 10:00 07/27/22 10:48 Levothyroxine 75 Mcg Tab PO 75 mcg QAM VINEET Administration Lisinopril 20 mg 07/25/22 21:00 07/27/22 10:48 Lisinopril 20 Mg Tab PO 20 mg DAILY VINEET Administration Metformin HCl 500 mg 07/27/22 08:00 07/27/22 10:48 Metformin Xr 500mg Tab PO 500 mg QDDIAB VINEET Administration Methotrexate 20 mg 07/28/22 10:00 Methotrexate 2.5 Mg Tab (Dose Weekly Only) PO Mo VINEET Metoclopramide HCl 10 mg 07/25/22 19:35 Metoclopramide 10 Mg/2 Ml Inj IV Q6H PRN Nausea And Vomiting Metoprolol Succinate 100 mg 07/25/22 20:00 07/27/22 10:48 Metoprolol Succinate Xl 100 Mg Tab PO 100 mg QDAY VINEET Administration Miscellaneous Medication 50 mg 08/08/22 10:00 Etanercept [Enbrel] SUB-Q QWEEK [facility] Morphine Sulfate 2 mg 07/25/22 19:35 Morphine 2 Mg/1 Ml Inj IV Q4H PRN Pain, Moderate (4-6) Ondansetron HCl 4 mg 07/25/22 19:35 Ondansetron 4 Mg/2 Ml Inj IV Q3H PRN Nausea And Vomiting Oxycodone/Acetaminophen 1 tab 07/25/22 19:35 Oxycodone /Acetaminophen 5-325mg Tab PO Q6H PRN Pain, Moderate (4-6) Sodium Chloride 10 ml 07/25/22 22:00 07/27/22 10:48 Sodium Chloride 0.9% 10 Ml Flush Syringe IV 10 ml BID VINEET Administration Sodium Chloride 10 ml 07/25/22 19:35 Sodium Chloride 0.9% 10 Ml Flush Syringe IV PRN PRN LINE FLUSH
[2022-07-27] MEDS ORDERED: SODIUM CHLORIDE 0.9% 500 ML 500 ML IV ONE (12:00)
[2022-07-27 13:01] LABS: Bilirubin,Urine NEG (Negative); Blood,Urine SM (Negative); Color,Urine Yellow (Yellow)
[2022-07-27 13:27] LABS: Amorphous Crystals,Urine 1+; Bacteria,Urine 4+ /HPF (Negative); Calcium Oxalate Crystals,Urine FEW; Mucus,Urine FEW /HPF; Urobilinogen,Urine < 2 mg/dL (<2.0)
[2022-07-27 14:04] LABS: WBC,Urine > 182.0 /HPF (0.0-6.0)
--- NOTE | 2022-07-27 17:52 | Progress Note ---
Assessment and Plan Assessment and plan: Advance Directives: Yes (Full code) VTE prophylaxis?: Chemical Plan of care discussed with patient/family: Yes - Patient Problems -- Acute toxic metabolic encephalopathy Hypercalcemia, hypertension, hypothyroidism , advanced age may be the contributing factors Treat underlying cause,Check PTH, IV calcitonin Optimal control of blood sugars Resume home medications,Closely monitor -- Hypercalcemia IV fluids and IV calcitonin, PTH level requested -- IDDM (insulin dependent diabetes mellitus) Accu-Cheks .sliding scale coverage .ADA diet Long-acting insulin as needed , check hemoglobin A1c Diabetic education, diabetic nutrition education prior to discharge Home health nurse for disease monitoring Check hemoglobin A1c 7.7 and 10/2021 --Hypertension/well-controlled Continue current antihypertensives and As needed hydralazine , closely monitor --Hyperlipidemia Continue statins, low-cholesterol -- Rheumatoid arthritis Continue methotrexate and Enbrel Supportive care --Hypothyroidism Continue Synthroid and check TSH --DVT prophylaxis Subcu heparin --Full CODE STATUS --Advance care planning-+30 minutes Disease education conducted in care plan discussed, diagnosis discussed and prognosis discussed. Patient is full code. Family and patient acknowledges understanding of care plan +30 minutes. --preventive health care counseling; +30 minutes Elderly frail patient fall precautions, aspiration precautions, raise the head end of the bed Not appropriate age-related health screenings per primary care physician 07/27/2022; follow PT, OT evaluation recommendation Check crowley PCR test, case management to assist with discharge planning Possible discharge back to SNF tomorrow if stable Hospitalist Physical - Constitutional Vitals: Temp Pulse Resp BP Pulse Ox 98.8 F 80 18 102/65 100 07/27/22 16:11 07/27/22 16:11 07/27/22 16:11 07/27/22 16:11 07/27/22 16:11 General appearance: Present: no acute distress, well-nourished HEART Score - HEART Score Troponin: Troponin T 0.037 ng/mL (0.00-0.029) H 07/25/22 09:11 Results - Labs CBC & Chem 7: 07/26/22 05:10 07/26/22 04:00 Labs: Laboratory Last Values WBC 10.8 K/mm3 (4.5-11.0) 07/26/22 05:10 RBC 4.43 M/mm3 (3.65-5.03) 07/26/22 05:10 Hgb 12.7 gm/dl (10.1-14.3) 07/26/22 05:10 Hct 38.9 % (30.3-42.9) 07/26/22 05:10 MCV 88 fl (79-97) 07/26/22 05:10 MCH 29 pg (28-32) 07/26/22 05:10 MCHC 33 % (30-34) 07/26/22 05:10 RDW 14.7 % (13.2-15.2) 07/26/22 05:10 Plt Count 435 K/mm3 (140-440) 07/26/22 05:10 Lymph % (Auto) 23.8 % (13.4-35.0) 07/26/22 05:10 [place] % (Auto) 7.3 % (0.0-7.3) 07/26/22 05:10 Eos % (Auto) 0.7 % (0.0-4.3) 07/26/22 05:10 Baso % (Auto) 0.7 % (0.0-1.8) 07/26/22 05:10 Lymph # (Auto) 2.6 K/mm3 (1.2-5.4) 07/26/22 05:10 [place] # (Auto) 0.8 K/mm3 (0.0-0.8) 07/26/22 05:10 Eos # (Auto) 0.1 K/mm3 (0.0-0.4) 07/26/22 05:10 Baso # (Auto) 0.1 K/mm3 (0.0-0.1) 07/26/22 05:10 Seg Neutrophils % 67.5 % (40.0-70.0) 07/26/22 05:10 Seg Neutrophils # 7.3 K/mm3 (1.8-7.7) 07/26/22 05:10 Sodium 139 mmol/L (137-145) 07/26/22 04:00 Potassium 4.9 mmol/L (3.6-5.0) 07/26/22 04:00 Chloride 102.1 mmol/L (98-107) 07/26/22 04:00 Carbon Dioxide 23 mmol/L (22-30) 07/26/22 04:00 Anion Gap 19 mmol/L 07/26/22 04:00 BUN 20 mg/dL (7-17) H 07/26/22 04:00 Creatinine 0.5 mg/dL (0.6-1.2) L 07/26/22 04:00 Estimated GFR > 60 ml/min 07/26/22 04:00 BUN/Creatinine Ratio 40 % 07/26/22 04:00 Glucose 182 mg/dL (65-100) H 07/26/22 04:00 POC Glucose 308 mg/dL (70-105) H 07/27/22 16:07 Calcium 11.3 mg/dL (8.4-10.2) H 07/26/22 04:00 Total Bilirubin 0.60 mg/dL (0.1-1.2) 07/26/22 04:00 AST 19 units/L (5-40) 07/26/22 04:00 ALT 17 units/L (7-56) 07/26/22 04:00 Alkaline Phosphatase 89 units/L (35-129) 07/26/22 04:00 Troponin T 0.037 ng/mL (0.00-0.029) H 07/25/22 09:11 Total Protein 8.3 g/dL (6.3-8.2) H 07/26/22 04:00 Albumin 4.4 g/dL (3.9-5) 07/26/22 04:00 Albumin/Globulin Ratio 1.1 % 07/26/22 04:00 Triglycerides 108 mg/dL (2-149) 07/25/22 09:11 Cholesterol 100 mg/dL (50-199) 07/25/22 09:11 LDL Cholesterol Direct 44 mg/dL (50-130) L 07/25/22 09:11 HDL Cholesterol 37 mg/dL (40-59) L 07/25/22 09:11 Cholesterol/HDL Ratio 2.70 % 07/25/22 09:11 PTH Intact 37.43 pg/mL (15-65) 07/26/22 11:16 Urine Color Yellow (Yellow) 07/27/22 12:47 Urine Turbidity Cloudy (Clear) 07/27/22 12:47 Urine pH 5.0 (5.0-7.0) 07/27/22 12:47 Ur Specific [place] 1.021 (1.003-1.030) 07/27/22 12:47 Urine Protein 30 mg/dl mg/dL (Negative) 07/27/22 12:47 Urine Glucose (UA) >=500 mg/dL (Negative) 07/27/22 12:47 Urine Ketones Neg mg/dL (Negative) 07/27/22 12:47 Urine Blood Sm (Negative) 07/27/22 12:47 Urine Nitrite Neg (Negative) 07/27/22 12:47 Urine Bilirubin Neg (Negative) 07/27/22 12:47 Urine Urobilinogen < 2 mg/dL (<2.0) 07/27/22 12:47 Ur Leukocyte Esterase Lg (Negative) 07/27/22 12:47 Urine WBC (Auto) > 182.0 /HPF (0.0-6.0) H 07/27/22 12:47 Urine RBC (Auto) 35.0 /HPF (0.0-6.0) 07/27/22 12:47 U Epithel Cells (Auto) 11.0 /HPF (0-13.0) 07/27/22 12:47 Urine Bacteria (Auto) 4+ /HPF (Negative) 07/27/22 12:47 Urine WBC Clumps 3+ /HPF 07/27/22 12:47 Calcium Oxalate Crystal Few 07/27/22 12:47 Amorphous Crystals 1+ 07/27/22 12:47 Urine Mucus Few /HPF 07/27/22 12:47 [place]/IV: Voiding Method External Female Catheter Active Medications - Current Medications Current Medications: Generic Name Dose Route Start Last Admin Trade Name Freq PRN Reason Stop Dose Admin Acetaminophen 650 mg 07/25/22 20:00 Acetaminophen 325 Mg Tab PO Q4H PRN Pain MILD(1-3)/Fever >100.5/FARFAN Amlodipine Besylate 10 mg 07/27/22 10:00 07/27/22 10:48 Amlodipine 10 Mg Tab PO 10 mg DAILY VINEET Administration Atorvastatin Calcium 20 mg 07/25/22 22:00 07/26/22 21:48 Atorvastatin 20 Mg Tab PO 20 mg QHS VINEET Administration Famotidine 20 mg 07/25/22 22:00 07/27/22 10:48 Famotidine 20 Mg Tab PO 20 mg BID VINEET Administration Folic Acid 1 mg 07/26/22 10:00 07/27/22 10:48 Folic Acid 1 Mg Tab PO 1 mg DAILY VINEET Administration Heparin Sodium (Porcine) 5,000 unit 07/25/22 22:00 07/27/22 10:49 Heparin 5,000 Unit/1 Ml Vial SUB-Q 5,000 unit Q12HR VINEET Administration Insulin Glargine 8 units 07/25/22 22:00 07/26/22 23:23 Insulin Glargine 100 Units/Ml SUB-Q Not Given QHS [facility]END[facility] Insulin Human Lispro 0 unit 07/27/22 22:00 Insulin Lispro 100 Unit/Ml SUB-Q ACHS PENDING S[facility] TO [facility] Protocol Levothyroxine Sodium 75 mcg 07/26/22 10:00 07/27/22 10:48 Levothyroxine 75 Mcg Tab PO 75 mcg QAM VINEET Administration Lisinopril 20 mg 07/25/22 21:00 07/27/22 10:48 Lisinopril 20 Mg Tab PO 20 mg DAILY VINEET Administration Metformin HCl 500 mg 07/27/22 08:00 07/27/22 10:48 Metformin Xr 500mg Tab PO 500 mg QDDIAB [facility] Administration Methotrexate 20 mg 07/28/22 10:00 Methotrexate 2.5 Mg Tab (Dose Weekly Only) PO Mo PENDING S[facility] TO [facility] Metoclopramide HCl 10 mg 07/25/22 19:35 Metoclopramide 10 Mg/2 Ml Inj IV Q6H PRN Nausea And Vomiting Metoprolol Succinate 100 mg 07/25/22 20:00 07/27/22 10:48 Metoprolol Succinate Xl 100 Mg Tab PO 100 mg QDAY [facility] Administration Miscellaneous Medication 50 mg 08/08/22 10:00 Etanercept [Enbrel] SUB-Q QWEEK [facility] Morphine Sulfate 2 mg 07/25/22 19:35 Morphine 2 Mg/1 Ml Inj IV Q4H PRN Pain, Moderate (4-6) Ondansetron HCl 4 mg 07/25/22 19:35 Ondansetron 4 Mg/2 Ml Inj IV Q3H PRN Nausea And Vomiting Oxycodone/Acetaminophen 1 tab 07/25/22 19:35 Oxycodone /Acetaminophen 5-325mg Tab PO Q6H PRN Pain, Moderate (4-6) Sodium Chloride 10 ml 07/25/22 22:00 07/27/22 10:48 Sodium Chloride 0.9% 10 Ml Flush Syringe IV 10 ml BID VINEET Administration Sodium Chloride 10 ml 09/23/22 19:35 Sodium Chloride 0.9% 10 Ml Flush Syringe IV PRN PRN LINE FLUSH
[2022-07-27] MEDS: INSULIN GLARGINE 100 UNITS/ML SUB-Q SCH (22:45)
[2022-07-27] MEDS: INSULIN LISPRO 100 UNIT/ML SUB-Q SCH (22:45)
[2022-07-28] MEDS: INSULIN LISPRO 100 UNIT/ML SUB-Q SCH ×3 (07:30→17:48)
[2022-07-28] MEDS: LISINOPRIL 20 MG TAB PO SCH (09:14)
[2022-07-28] MEDS: amLODIPine 10 MG TAB PO SCH (09:15)
[2022-07-28] MEDS: METOPROLOL SUCCINATE XL 100 MG TAB PO SCH (09:15)
[2022-07-28] MEDS: FAMOTIDINE 20 MG TAB PO SCH (09:15)
[2022-07-28] MEDS: LEVOTHYROXINE 75 MCG TAB PO SCH (09:15)
[2022-07-28] MEDS: FOLIC ACID 1 MG TAB PO SCH (09:15)
[2022-07-28] MEDS: HEPARIN 5,000 UNIT/1 ML VIAL SUB-Q SCH (09:16)
[2022-07-28] MEDS: metFORMIN XR 500MG TAB PO SCH (09:22)
[2022-07-28] MEDS ORDERED: metHOTREXate 2.5 MG TAB (DOSE WEEKLY ONLY) PO SCH (10:00)
--- NOTE | 2022-07-28 14:43 | Discharge Summary ---
Providers - Providers Date of Admission: 07/25/22 19:36 Date of discharge: 07/28/22 Attending physician: VERA YAN 07/26/22 20:38 Physical Therapy Evaluation and Treat [CONS] Routine Comment: DC needs Reason For Exam: Evaluate and treat/unsteady gait/dizziness Primary care physician: RELINER Hospitalization Reason for admission: Altered level of consciousness/acute toxic metabolic encephalopathy Condition: Stable Pertinent studies: CT head without contrast; no acute abnormality noted Chest x-ray no acute abnormality noted Hospital course: 77-year-old female patient with significant past medical history of hypertension, rheumatoid arthritis, hypothyroidism and dyslipidemia who was admitted through emergency room with altered level of consciousness and confusion of 2 days duration patient was admitted CT head without contrast did not show any acute abnormality symptomatically managed resumed her home medications patient's symptoms slowly but gradually improved blood sugars and blood pressures closely monitored medications optimized today patient is comfortable alert awake oriented x3 responding to simple questions appropriately Vital signs stable ;Physical examination prior to discharge is unremarkable and stable s COVID-19 test is negative, patient ambulates with cane/walker Patient is being discharged to [facility], case management assisting with safe discharge planning. Assessment and plan: -- Acute toxic metabolic encephalopathy Hypercalcemia, hypertension, hypothyroidism , advanced age may be the contributing factors Treat underlying cause,Check PTH, IV calcitonin Optimal control of blood sugars Resume home medications,Closely monitor -- Hypercalcemia IV fluids and IV calcitonin, PTH level requested -- IDDM (insulin dependent diabetes mellitus) Accu-Cheks .sliding scale coverage .ADA diet Long-acting insulin as needed , check hemoglobin A1c Diabetic education, diabetic nutrition education prior to discharge Home health nurse for disease monitoring Check hemoglobin A1c 7.7 and 10/2021 --Hypertension/well-controlled Continue current antihypertensives and As needed hydralazine , closely monitor --Hyperlipidemia Continue statins, low-cholesterol -- Rheumatoid arthritis Continue methotrexate and Enbrel Supportive care --Hypothyroidism Continue Synthroid and check TSH Today patient feels better, no new complaints Stable at discharge Disposition: 03 SNF FACILITY Final Discharge Diagnosis (Prints w/discharge instructions): Acute toxic metabolic encephalopathy improved. Hypercalcemia trending down. IDDM [insulin- dependent diabetes mellitus]. Hypertension well-controlled. Hyperlipidemia stable. Rheumatoid arthritis stable. Hypothyroidism stable Time spent for discharge: 35 minutes Core Measure Documentation - Palliative Care Palliative Care/ Comfort Measures: Not Applicable - Core Measures Any of the following diagnoses?: none Exam - Constitutional Vitals: Temp Pulse Resp BP Pulse Ox 98.0 F 79 16 133/72 98 07/28/22 08:48 07/28/22 09:14 07/28/22 08:48 07/28/22 09:14 07/28/22 10:00 General appearance: Present: no acute distress, well-nourished - EENT Eyes: Present: PERRL, EOM intact - Neck Neck: Present: supple, normal ROM - Respiratory Respiratory effort: normal Respiratory: bilateral: diminished, negative: rales, rhonchi, wheezing - Cardiovascular Rhythm: regular Heart Sounds: Present: S1 & S2 - Extremities Extremities: no ischemia, No edema - Abdominal General gastrointestinal: Present: soft, non-tender, non-distended, normal bowel sounds - Integumentary Integumentary: Present: clear, warm - Musculoskeletal Musculoskeletal: strength equal bilaterally, generalized weakness - Psychiatric Psychiatric: appropriate mood/affect, cooperative - Neurologic Neurologic: moves all extremities Plan Activity: advance as tolerated, fall precautions Diet: diabetic Additional Instructions: Fall precautions. If you have worsening symptoms contact MD or go to the nearest emergency room as needed. May resume Eliquis after discussing with PMD. Follow up with: PRIMARY CARE, [Primary Care Provider] - 3-5 Days
[2022-07-28 16:12] VITALS: BP 105/59
[2022-08-01] MEDS ORDERED: metHOTREXate 2.5 MG TAB (DOSE WEEKLY ONLY) PO SCH ×2 (10:00)
[2022-08-08] MEDS ORDERED: ETANERCEPT 50 MG/ML SUB-Q SCH (10:00)
== END 2022-07-28 20:50 | DRG 640 ==
LOC: ED 23:37 → 4A 07-25 19:36
PROVIDERS: ADMIT Internal Medicine; ATTEND Internal Medicine
DX: E83.52 Hypercalcemia (principal); G92.8 Other toxic encephalopathy; E11.9 Type 2 diabetes mellitus without complications; Z20.822 Contact with and (suspected) exposure to COVID-19; E03.9 Hypothyroidism, unspecified; M06.9 Rheumatoid arthritis, unspecified; E78.2 Mixed hyperlipidemia; Z79.4 Long term (current) use of insulin; Z82.49 Family history of ischemic heart disease and other diseases of the circulatory system; Z79.899 Other long term (current) drug therapy
CPT/HCPCS: 36415; 70450; 71045; 80053; 80061; 81001; 82962; 83970; 84484; 85025; 99285; G0378; J3490; Q9967; J0630; J1644; J1815; J7040; J7042; U0003